=== PATIENT | male | born 1980 | race Caucasian/White ===

== ENCOUNTER 2019-07-03 14:21 | Emergency (ER) | payer OTHER ==
[~2019-07-03] VITALS: Ht 177.8 cm; Wt 88.5 kg
[2019-07-03 14:54] VITALS: BP 151/86
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
--- NOTE | 2019-07-03 15:08 | NUR ---
DR DE JESUS AT BEDSIDE
[2019-07-03] MEDS ORDERED: HYDROCODONE/APAP 10/325MG 1 EA TABLET ONE (15:16)
[2019-07-03] MEDS ORDERED: ONDANSETRON 4 MG TAB.RAPDIS ONE (15:16)
[2019-07-03] MEDS ORDERED: HYDROCODONE/APAP 10/325MG 1 EA TABLET PO ONE (15:30)
[2019-07-03] MEDS ORDERED: ONDANSETRON 4 MG TAB.RAPDIS SL ONE (15:30)
--- NOTE | 2019-07-03 17:07 | NUR ---
Patient discharged to home in stable condition. Written and verbal after care instructions given. Patient verbalizes understanding of instruction.
== END 2019-07-03 17:07 | disposition home or self-care (01) ==
LOC: ER 14:24
DX: M54.5 Low back pain (principal); M54.6 Pain in thoracic spine; F17.200 Nicotine dependence, unspecified, uncomplicated; F10.10 Alcohol abuse, uncomplicated; Y90.9 Presence of alcohol in blood, level not specified; Z98.890 Other specified postprocedural states; V49.49XA Driver injured in collision with other motor vehicles in traffic accident, initial encounter; Y93.89 Activity, other specified; Y92.488 Other paved roadways as the place of occurrence of the external cause; Y99.8 Other external cause status
CPT/HCPCS: 72074; 72110; 99283; 99406; Q0162